=== PATIENT | male | born 1960 | race African-American/Black ===

== ENCOUNTER 2023-05-15 12:22 | Outpatient (CLI) | payer BC ==
[2023-05-15 13:24] LABS: #Eosinphils 0.2 10x3/uL (0.0-0.5); #Monocytes 0.5 10x3/uL (0.0-1.1); #Neutrophils 2.1 10x3/uL (1.5-8.4); %Basophils 0.4 % (0.0-2.0); %Eosinophils 4.2 % (0.0-6.0); %Neutrophils 42.2 % (40.0-75.0); Hematocrit 46.5 % (38.8-50.0); Hemoglobin 15.5 g/dL (13.5-17.5); Mean Corpuscular HGB CONC 33.3 g/dL (32.0-36.0); Mean Corpuscular Hemoglobin 30.1 pg (27.0-33.0); Mean Corpuscular Volume 90.3 fl (81.2-95.1); Mean Platelet Volume 10.8 fl (7.4-10.4); Platelet Count 185 10x3/uL (150-450); RBC Distribution Width 13.8 % (11.5-14.5); Red Blood Cell (RBC) Count 5.15 10x6/uL (4.32-5.72)
[2023-05-15 13:41] LABS: Anion Gap 17 mmol/L (10-20); BUN (Urea Nitrogen) 10 mg/dL (8.4-25.7); Calc. Creatinine Clearance 0 mL/min (70-130); Calcium 9.1 mg/dL (7.8-10.44); Carbon Dioxide 21 mmol/L (22-29); Chloride 109 mmol/L (98-107); Estimated GFR 69; Glucose 91 mg/dL (70-105); Potassium 4.1 mmol/L (3.5-5.1); Sodium 143 mmol/L (136-145)
== END 2023-05-15 12:23 | disposition home or self-care (01) ==
LOC: LABBT 12:22
PROVIDERS: ATTEND Internal Medicine Cardiovascular Disease
DX: Z01.818 Encounter for other preprocedural examination (principal); I48.91 Unspecified atrial fibrillation
CPT/HCPCS: 80048; 85025; 93005; 93010

== ENCOUNTER 2023-05-17 06:08 | Day surgery (SDC) | payer BC ==
[2023-05-15 12:49] VITALS: BMI 27.3
[2023-05-17] MEDS ORDERED: Lidocaine 1% PF 5 ML VIAL ONE (07:24)
[2023-05-17] MEDS ORDERED: PROPOFOL 40 ML ONE (07:24)
[2023-05-17] MEDS ORDERED: fentaNYL 50 mcg/mL 1 mL Vial ONE (07:55)
== END 2023-05-17 09:22 | disposition home or self-care (01) ==
LOC: SDC 06:08
PROVIDERS: ATTEND Internal Medicine Cardiovascular Disease
PROC: B246ZZ4 Ultrasonography of Right and Left Heart, Transesophageal (ICD-10-PCS; principal; 2023-05-17)
PROC: 5A2204Z Restoration of Cardiac Rhythm, Single (ICD-10-PCS; principal; 2023-05-17)
DX: I48.0 Paroxysmal atrial fibrillation (principal); I08.1 Rheumatic disorders of both mitral and tricuspid valves; I70.0 Atherosclerosis of aorta; E78.00 Pure hypercholesterolemia, unspecified; K57.90 Diverticulosis of intestine, part unspecified, without perforation or abscess without bleeding; F15.90 Other stimulant use, unspecified, uncomplicated; F10.90 Alcohol use, unspecified, uncomplicated; Z89.429 Acquired absence of other toe(s), unspecified side; Z79.82 Long term (current) use of aspirin; Z79.899 Other long term (current) drug therapy
CPT/HCPCS: 92960; 93005; 93010; 93312; J2704; J3010

== ENCOUNTER 2023-05-23 08:00 | Day surgery (SDC) | payer BC ==
[2023-05-23] MEDS ORDERED: PROPOFOL 200 MG/20 ML VIAL ONE (10:15)
== END 2023-05-23 11:14 | disposition home or self-care (01) ==
LOC: SDC 08:00
PROVIDERS: ATTEND Internal Medicine Cardiovascular Disease
PROC: 5A2204Z Restoration of Cardiac Rhythm, Single (ICD-10-PCS; principal; 2023-05-23)
DX: I48.91 Unspecified atrial fibrillation (principal); K57.90 Diverticulosis of intestine, part unspecified, without perforation or abscess without bleeding; E78.00 Pure hypercholesterolemia, unspecified; F17.200 Nicotine dependence, unspecified, uncomplicated; F10.90 Alcohol use, unspecified, uncomplicated; F15.90 Other stimulant use, unspecified, uncomplicated; Z89.429 Acquired absence of other toe(s), unspecified side; Z79.82 Long term (current) use of aspirin; Z79.899 Other long term (current) drug therapy
CPT/HCPCS: 92960; J2704

== ENCOUNTER 2023-08-28 06:01 | Day surgery (SDC) | payer BC ==
[2023-08-26 11:58] VITALS: BMI 26.8
[2023-08-26 12:25] LABS: Hematocrit 45.5 % (38.8-50.0); Hemoglobin 15.5 g/dL (13.5-17.5); Mean Corpuscular HGB CONC 34.1 g/dL (32.0-36.0); Mean Corpuscular Hemoglobin 30.8 pg (27.0-33.0); Mean Corpuscular Volume 90.3 fl (81.2-95.1); Mean Platelet Volume 11.2 fl (7.4-10.4); Platelet Count 158 10x3/uL (150-450); RBC Distribution Width 14.3 % (11.5-14.5); Red Blood Cell (RBC) Count 5.04 10x6/uL (4.32-5.72); White Blood Cell (WBC) Count 4.9 10x3/uL (3.5-10.5)
[2023-08-26 12:48] LABS: INR-International Normal Ratio 1.1; PTT 26.8 sec (22.0-33.0); Prothrombin Time 12.1 sec (9.5-12.1)
[2023-08-26 12:59] LABS: Anion Gap 13 mmol/L (10-20); BUN (Urea Nitrogen) 11 mg/dL (8.4-25.7); Calc. Creatinine Clearance 112 mL/min (70-130); Calcium 9.2 mg/dL (7.8-10.44); Carbon Dioxide 22 mmol/L (22-29); Chloride 110 mmol/L (98-107); Estimated GFR 75; Glucose 87 mg/dL (70-105); Potassium 4.5 mmol/L (3.5-5.1); Sodium 140 mmol/L (136-145)
[2023-08-28] MEDS ORDERED: Heparin 10,000 UNITS/ 10 ML VIAL ONE ×2 (06:45→11:29)
[2023-08-28] MEDS ORDERED: Heparin 25,000 units/D5W 500 ML ONE (06:45)
[2023-08-28] MEDS ORDERED: Protamine Sulfate 50 MG/5 ML VIAL ONE (06:45)
[2023-08-28] MEDS ORDERED: Isoproterenol 0.2 MG/1 ML AMP ONE (06:45)
[2023-08-28] MEDS ORDERED: Phenylephrine 10 MG/ML VIAL ONE (07:21)
[2023-08-28] MEDS ORDERED: Rocuronium Bromide 10 MG/ML (10ML VIAL) ONE ×2 (07:21→09:42)
[2023-08-28] MEDS ORDERED: Lidocaine 1% PF 5 ML VIAL ONE (07:21)
[2023-08-28] MEDS ORDERED: PROPOFOL 20 ML ONE (07:21)
[2023-08-28] MEDS ORDERED: fentaNYL 50 mcg/mL 1 mL Vial ONE ×2 (07:21→13:46)
[2023-08-28] MEDS ORDERED: Ketorolac Tromethamine 30 MG (1 mL) VIAL IVP PRN (07:51)
[2023-08-28] MEDS ORDERED: Furosemide 40 MG TAB PO PRN (07:51)
[2023-08-28] MEDS ORDERED: Potassium Chloride 20 MEQ TAB PO PRN (07:51)
[2023-08-28] MEDS ORDERED: Sucralfate 1 GM TAB PO SCH (11:30)
[2023-08-28] MEDS ORDERED: HYDROmorphone 2 MG/ML VIAL ONE (12:40)
[2023-08-28] MEDS ORDERED: Midazolam HCl 2 mg/2 ml Vial ONE (12:53)
[2023-08-28] MEDS ORDERED: HYDROcodone/Acetaminophen 5/325 mg Tablet ONE (15:45)
== END 2023-08-28 16:43 | disposition home or self-care (01) ==
LOC: SDC 06:01
PROVIDERS: ATTEND Internal Medicine Cardiovascular Disease
PROC: 02583ZZ Destruction of Conduction Mechanism, Percutaneous Approach (ICD-10-PCS; principal; 2023-08-28)
PROC: 4A023FZ Measurement of Cardiac Rhythm, Percutaneous Approach (ICD-10-PCS; principal; 2023-08-28)
PROC: 4A0234Z Measurement of Cardiac Electrical Activity, Percutaneous Approach (ICD-10-PCS; principal; 2023-08-28)
DX: I48.19 Other persistent atrial fibrillation (principal); Z79.01 Long term (current) use of anticoagulants; Z79.899 Other long term (current) drug therapy
CPT/HCPCS: 80048; 85027; 85347; 85610; 85730; 93005; 93010; 93622; 93623; 93655; 93656; 93657; C1732; C1759; C1760; C1894; J1170; J1644; J2250; J2371; J2704; J2720; J3010

== ENCOUNTER → 2023-12-30 | Day surgery (SDC) | payer BC ==
[2023-12-27 08:54] VITALS: BMI 26.2
[2023-12-27 10:09] LABS: Hematocrit 44.5 % (38.8-50.0); Hemoglobin 15.5 g/dL (13.5-17.5); Mean Corpuscular HGB CONC 34.8 g/dL (32.0-36.0); Mean Corpuscular Hemoglobin 30.7 pg (27.0-33.0); Mean Corpuscular Volume 88.1 fL (81.2-95.1); Mean Platelet Volume 11.3 fL (7.4-10.4); Platelet Count 187 10x3/uL (150-450); RBC Distribution Width 13.8 % (11.5-14.5); Red Blood Cell (RBC) Count 5.05 10x6/uL (4.32-5.72); White Blood Cell (WBC) Count 4.7 10x3/uL (3.5-10.5)
[2023-12-27 10:31] LABS: PTT 26.2 sec (22.0-33.0); Prothrombin Time 11.3 sec (9.5-12.1)
[2023-12-27 10:46] LABS: Anion Gap 14 mmol/L (10-20); BUN (Urea Nitrogen) 12 mg/dL (8.4-25.7); Calc. Creatinine Clearance 92 mL/min (70-130); Calcium 9.3 mg/dL (7.8-10.44); Carbon Dioxide 21 mmol/L (23-31); Chloride 108 mmol/L (98-107); Estimated GFR 61; Glucose 96 mg/dL (80-115); Potassium 4.3 mmol/L (3.5-5.1); Sodium 139 mmol/L (136-145)
[~2023-12-30] MED LIST: Lidocaine 1% PF 5 ML VIAL ONE; PROPOFOL 200 MG/20 ML VIAL ONE
== END ==
LOC: SDC 07:19
PROVIDERS: ATTEND Internal Medicine Cardiovascular Disease
PROC: 5A2204Z Restoration of Cardiac Rhythm, Single (ICD-10-PCS; principal; 2023-12-30)
DX: I48.19 Other persistent atrial fibrillation (principal); Z79.01 Long term (current) use of anticoagulants
CPT/HCPCS: 80048; 85027; 85610; 85730; 92960; 93005; 93010; J2704